=== PATIENT | female | born 1980 | race Caucasian/White ===

== ENCOUNTER 2024-08-16 12:04 | Outpatient (CLI) | payer OTHER, SELFPAY ==
--- NOTE | 2024-08-16 | DI.RAD_ITS ---
Exam(s) XR CHEST 2V PA LATERAL EXAM: XR CHEST 2V PA LATERAL CLINICAL HISTORY: Dyspenea R06.09. TECHNIQUE: 2D digital imaging was performed. COMPARISON: No exams were available for comparison FINDINGS: 2 views: Heart size is normal. The mediastinum is not widened. Lung is clear. There is a small nodular density the right lower region measuring approximately 5 mm., possibly signi ficant. There are no previous for comparison. There is a possibility that this may represent breast nipple. IMPRESSION: No infiltrates but possible small 5 mm nodule right lung base. Recommend follow-up frontal PA view w ith bilateral metallic nipple markers in place DATA REPOSITORY: RADIATION DOSE DELIVERED:
== END 2024-08-16 12:24 ==
LOC: DI 12:07
PROVIDERS: PCP Internal Medicine Endocrinology, Diabetes & Metabolism; Visit Provider Nurse Practitioner Family
DX: R06.09 Other forms of dyspnea (principal); R91.1 Solitary pulmonary nodule
CPT/HCPCS: 71046

== ENCOUNTER 2024-08-17 11:24 | Outpatient (CLI) | payer OTHER, SELFPAY ==
--- NOTE | 2024-08-17 13:13 | DI.RAD_ITS ---
Exam(s) XR CHEST 1V IN DI DEPT EXAM: XR CHEST 1V IN DI DEPT CLINICAL HISTORY: ABNL FINDINGS R93.89, FU FRONTAL PA VIEW W/BILAT METALLIC NIPPLE MARKERS, ?. TECHNIQUE: 2D digital imaging was performed. COMPARISON: CR XR CHEST 2V PA LATERAL from 08/16/2024 FINDINGS: Single AP portable view. Performed with bilateral metallic nipple markers in place. Heart size is upper normal. The mediastinum is not widened. Lungs are clear. No infiltrates nor obvious pleural effusions. Previously described small nodular density lower right lung field does not correspond to the breast n ipple. However, it appears smaller on today's chest radiograph when compared to yesterday. Pleural effusion. IMPRESSION: Small 3 millimeter nodule in the right lower lung field which does not correspond to the breast nippl e. Appears somewhat smaller than yesterday.Recommend follow-up chest x-ray in 1 month or, milan duenas, CT scan. DATA REPOSITORY: RADIATION DOSE DELIVERED:
== END 2024-08-17 11:44 ==
LOC: DI 11:25
PROVIDERS: PCP Internal Medicine Endocrinology, Diabetes & Metabolism; Visit Provider Nurse Practitioner Family
DX: R91.8 Other nonspecific abnormal finding of lung field (principal)
CPT/HCPCS: 71045